=== PATIENT | male | born 1995 | race Caucasian/White ===

== ENCOUNTER 2016-10-27 17:11 | Emergency (ER) | payer OTHER ==
[2016-10-27 17:24] VITALS: BP 139/71
[2016-10-27] MEDS ORDERED: TRAMADOL HCL 50 MG TABLET PO ONE (17:50)
[2016-10-27] MEDS ORDERED: ACETAMINOPHEN 325 MG TABLET PO ONE (17:50)
[2016-10-27] MEDS ORDERED: AMOXICILLIN TR/POT CLAVULANATE 500-125 MG TAB PO ONE (17:50)
--- NOTE | 2016-10-27 17:56 | ER Document Report ---
HPI - HPI Patient complains to provider of: cyst, possible abscess Pain Level: 4 Context: Patient is a 21 year old male who presents complaining of cysts/possible abscess. States the area has been bothering him for about 3 days, have been draining on their own since he "popped' them. admits to tenderness, erythema. denies fevers, chills. has a history of abscess in this area one year ago - DERM Skin Color: Normal Past Medical History - Social History Smoking Status: Current Every Day Smoker Family History: Reviewed & Not Pertinent Patient has suicidal ideation: No Patient has homicidal ideation: No Renal/ Medical History: Denies: Hx Peritoneal Dialysis - Immunizations Hx Diphtheria, Pertussis, Tetanus Vaccination: Yes Vertical Provider Document - CONSTITUTIONAL Agree With Documented VS: Yes Exam Limitations: No Limitations General Appearance: WD/WN, No Apparent Distress - INFECTION CONTROL TRAVEL OUTSIDE OF THE [place] IN LAST 30 DAYS: No - RESPIRATORY Respiratory: Breath Sounds Normal, No Respiratory Distress, Chest Non-Tender O2 Sat by Pulse Oximetry: 99 - CARDIOVASCULAR Cardiovascular: Regular Rate, Regular Rhythm, No Murmur - MUSCULOSKELETAL/EXTREMETIES Musculoskeletal/Extremeties: MAEW, FROM, Non-Tender, No Edema - NEURO Level of Consciousness: Awake, Alert, Appropriate Motor/Sensory: No Motor Deficit, No Sensory Deficit - DERM Integumentary: Warm, Dry, No Rash Adult Front & Back Diagram: 1 - two areas of cellulitis with head, erythema and induration without fluctuation. no fluid appreciated Course - Re-evaluation Re-evalutation: 10/27/16 18:39 patient is a 21 year old male who is stable, no acute distress and afebrile. Areas of complaint car evidence of cellulitis that are draining on there own. No evidence of abscess. No I&D indicated. Sent home with pain medication and antibiotic - Vital Signs Vital signs: Temp Pulse Resp BP Pulse Ox 100.0 F 103 H 18 139/71 H 99 10/27/16 17:19 10/27/16 17:19 10/27/16 17:19 10/27/16 17:19 10/27/16 17:19 Discharge - Discharge Clinical Impression: Cellulitis Qualifiers: Site of cellulitis: buttock Qualified Code(s): L03.317 - Cellulitis of buttock Condition: Good Disposition: HOME, SELF-CARE Instructions: Oral Narcotic Medication ([facility]), Cellulitis ([facility]), Use of Over-The -Counter Ibuprofen ([facility]) Additional Instructions: Be sure to do warm soaks/warm wash clothe as much as tolerated to stimulate drainage You can also do Epsom salt soaks as well Prescriptions: Tramadol HCl [Ultram] 50 mg PO Q6HP PRN #15 tablet PRN Reason: Amox Tr/Potassium Clavulanate [Augmentin 875-125 Tablet] 1 tab PO BID 7 Days Forms: Elevated Blood Pressure [facility]: [facility] [NO LOCAL MD] - Follow up as needed CEE DAVIS MD [[facility]] - Follow up as needed
== END 2016-10-27 18:05 | disposition home or self-care (01) ==
LOC: ER 17:11
DX: L03.317 Cellulitis of buttock (principal); F17.200 Nicotine dependence, unspecified, uncomplicated
CPT/HCPCS: 99282

== ENCOUNTER 2017-03-05 20:51 | Emergency (ER) | payer SELFPAY ==
[2017-03-05 21:07] VITALS: BP 133/75
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
[2017-03-05] MEDS ORDERED: IBUPROFEN 600 MG TABLET PO ONE (22:29)
== END 2017-03-05 22:45 | disposition home or self-care (01) ==
LOC: ER 20:51
DX: S00.01XA Abrasion of scalp, initial encounter (principal); S00.83XA Contusion of other part of head, initial encounter; Y00.XXXA Assault by blunt object, initial encounter; Y92.009 Unspecified place in unspecified non-institutional (private) residence as the place of occurrence of the external cause; F17.200 Nicotine dependence, unspecified, uncomplicated
CPT/HCPCS: 70450; 70486; 99284

== ENCOUNTER 2019-07-09 19:27 | Emergency (ER) | payer OTHER ==
[2019-07-09 19:47] VITALS: BP 136/88
== END 2019-07-09 21:56 | disposition left against medical advice (07) ==
LOC: ER 19:27
DX: Z53.21 Procedure and treatment not carried out due to patient leaving prior to being seen by health care provider (principal)